=== PATIENT | male | born 1955 | race African-American/Black ===

== ENCOUNTER 2017-03-30 06:35 | Day surgery (SDC) | payer OTHER ==
[2017-03-29 09:54] VITALS: BMI 33.0
[2017-03-30] MEDS ORDERED: PROPOFOL 20 ML ONE ×2 (08:25)
[2017-03-30 09:19] VITALS: TEMP 7.5
[2017-03-30 10:14] VITALS: BP 116/78; PULSE 76
--- NOTE | 2017-04-02 15:14 | PATH ---
Surgical Pathology Report Patient Name: MARILYN MARIN [facility]. Rec. #: [id number] /Age/Gender: 1955 (Age: 61) / M Account: [id number] Location: U-ENDOSCOPY Taken: 03/30/2017 Received: 03/30/2017 Reported: 04/02/2017 Physicians: Vilma Gentile M.D. Specimen(s) Received A: BX CECAL POLYP B: BX ASCENDING COLON POLYP C: BX HEPATIC FLEXURE POLYP Clinical History Preoperative diagnosis: Screening Postoperative diagnosis: Polyps, diverticulosis Final Diagnosis A. CECAL POLYP, BIOPSY: POLYPOID COLONIC MUCOSA WITH MELANOSIS COLI AND SUPERFICIAL HYPERPLASTIC CHANGES. B. ASCENDING COLON, POLYP, BIOPSY: TUBULAR ADENOMA. C. COLON, HEPATIC FLEXURE, POLYP, BIOPSY: TUBULAR ADENOMA. Electronically Signed Adela Mojica M.D. Gross Description A. Received in formalin, labeled "biopsy cecal polyp" is a flores, irregular portion of soft tissue measuring 0.1 cm. in greatest dimension. The specimen is submitted in toto in one cassette. B. Received in formalin, labeled "biopsy ascending colon polyp" are 5 flores, irregular portions of soft tissue in from 0.1-0.3 cm. in greatest dimension. The specimens are submitted in toto in one cassette. C. Received in formalin, labeled "biopsy hepatic flexure polyp" are 2 flores, irregular portions of soft tissue averaging 0.2 cm. in greatest dimension. The specimens are submitted in toto in one cassette. 03/30/2017 saudi03/30/2017
== END 2017-03-30 10:19 | disposition home or self-care (01) ==
LOC: JASU-ENDO 06:35
PROVIDERS: ATTEND Internal Medicine Gastroenterology
PROC: 0DBL8ZX Excision of Transverse Colon, Via Natural or Artificial Opening Endoscopic, Diagnostic (ICD-10-PCS; 2017-03-30)
PROC: 0DBH8ZX Excision of Cecum, Via Natural or Artificial Opening Endoscopic, Diagnostic (ICD-10-PCS; 2017-03-30)
PROC: 0DBK8ZX Excision of Ascending Colon, Via Natural or Artificial Opening Endoscopic, Diagnostic (ICD-10-PCS; principal; 2017-03-30 09:30)
DX: Z12.11 Encounter for screening for malignant neoplasm of colon (principal); K57.30 Diverticulosis of large intestine without perforation or abscess without bleeding; K64.8 Other hemorrhoids; D12.2 Benign neoplasm of ascending colon; D12.0 Benign neoplasm of cecum; D12.3 Benign neoplasm of transverse colon
CPT/HCPCS: 88305-TC

== ENCOUNTER 2021-11-20 19:50 | Observation (INO) | payer OTHER ==
[2021-11-20 19:58] VITALS: BMI 31.0
[2021-11-20 21:09] LABS: BASO % 0.7 % (0-2.0); EOS % 2.3 % (0-4.5); HEMATOCRIT 44.2 % (35.4-49); HEMOGLOBIN 14.8 GM/dL (11.7-16.9); LYMPH % 35.4 % (8-40); MCH 28.9 pg (25.7-33.7); MCHC 33.4 g/dl (32.0-35.9); MEAN CELL VOLUME 86.6 fl (80-96); MEAN PLT VOLUME 9.1 fl (7.5-11.1); MONO % 10.2 % (3.8-10.2); NEUT % 51.4 % (42.8-82.8); PLATELET COUNT 218 10^3/uL (134-434); RBC 5.11 M/mm3 (4.00-5.60); RDW 14.9 % (11.9-15.9); WHITE BLOOD COUNT 4.7 K/mm3 (4.0-10.0)
[2021-11-20 21:31] LABS: CALCIUM 9.3 mg/dL (8.5-10.1)
[2021-11-20 21:32] LABS: ALBUMIN 3.9 g/dl (3.4-5.0); BLOOD UREA NITROGEN 19.6 mg/dL (7-18)
[2021-11-20 21:34] LABS: CREATININE 1.7 mg/dL (0.55-1.3)
[2021-11-20 21:36] LABS: BILIRUBIN,TOTAL 0.6 mg/dL (0.2-1); TOT PROT 7.7 g/dl (6.4-8.2)
[2021-11-21] MEDS ORDERED: MAG HYDROX/AL HYDROX/SIMETH 30 ML UNIT-DOSE CUP PO PRN (04:24)
[2021-11-21 08:05] LABS: ALBUMIN 3.6 g/dl (3.4-5.0); BLOOD UREA NITROGEN 16.7 mg/dL (7-18); MAGNESIUM 2.2 mg/dL (1.8-2.4)
[2021-11-21 08:08] LABS: CREATININE 1.3 mg/dL (0.55-1.3); PHOSPHOROUS 3.7 mg/dL (2.5-4.9)
[2021-11-21 08:10] LABS: BILIRUBIN,TOTAL 0.9 mg/dL (0.2-1); TOT PROT 7.5 g/dl (6.4-8.2)
[2021-11-21 08:40] VITALS: PULSE 62; RESP 18
[2021-11-21] MEDS ORDERED: PANTOPRAZOLE 40 MG TABLET PO ONE (09:46)
[2021-11-21] MEDS ORDERED: LISINOPRIL 20 MG TABLET ONE (09:46)
[2021-11-21] MEDS ORDERED: amLODIPine BESYLATE 10 MG TABLET (FP) ONE (09:46)
[2021-11-21 09:55] VITALS: BP 145/82; TEMP 98.4
[2021-11-21] MEDS ORDERED: CHLORTHALIDONE 25 MG TABLET PO SCH (10:00)
[2021-11-21] MEDS ORDERED: LISINOPRIL 20 MG TABLET PO SCH (10:00)
[2021-11-21] MEDS ORDERED: PANTOPRAZOLE 40 MG TABLET PO SCH (10:00)
[2021-11-21] MEDS ORDERED: amLODIPine BESYLATE 10 MG TABLET (FP) PO SCH (10:00)
[2021-11-21] MEDS ORDERED: RIVAROXABAN 20 MG TABLET PO SCH (18:00)
[2021-11-21] MEDS ORDERED: SENNOSIDES/DOCUSATE COMBO (SENNA PLUS) TABLET (UD) PO SCH (22:00)
== END 2021-11-21 10:25 | disposition home or self-care (01) ==
LOC: JER 19:50 → JERBED 22:23
PROVIDERS: ADMIT Internal Medicine; ATTEND Internal Medicine
DX: R07.9 Chest pain, unspecified (principal); R10.13 Epigastric pain; I48.91 Unspecified atrial fibrillation; K21.9 Gastro-esophageal reflux disease without esophagitis; E78.5 Hyperlipidemia, unspecified; I10 Essential (primary) hypertension
CPT/HCPCS: 0241U-QW; 36415; 71046-TC-FY; 80053; 83735; 84100; 84484; 85025; 85379; 93005; 93010; 99285-25; C9803-CS; G0378; U0003; U0005

== ENCOUNTER 2021-11-30 22:53 | Inpatient (IN) | payer OTHER ==
[2021-11-30 22:58] VITALS: TEMP 97.5; BMI 31.0
[2021-12-01] MEDS ORDERED: MECLIZINE HCL 25 MG TABLET (FP) PO ONE (00:10)
[2021-12-01] MEDS ORDERED: MECLIZINE HCL 25 MG TABLET (FP) ONE (00:33)
[2021-12-01 01:34] LABS: INR 2.55 (0.83-1.09); PROTHROMBIN TIME (PATIENT) 29.6 SEC (9.7-13.0)
[2021-12-01 01:36] LABS: ACTIVATED PTT 44.6 SECONDS (25.2-36.5)
[2021-12-01 01:46] LABS: BASO % 0.4 % (0-2.0); EOS % 0.3 % (0-4.5); HEMOGLOBIN 13.2 GM/dL (11.7-16.9); LYMPH % 9.9 % (8-40); MCHC 33.9 g/dl (32.0-35.9); MEAN CELL VOLUME 85.7 fl (80-96); MEAN PLT VOLUME 9.1 fl (7.5-11.1); MONO % 4.3 % (3.8-10.2); NEUT % 85.1 % (42.8-82.8); PLATELET COUNT 212 10^3/uL (134-434); RBC 4.55 M/mm3 (4.00-5.60); RDW 14.2 % (11.9-15.9); WHITE BLOOD COUNT 7.5 K/mm3 (4.0-10.0)
[2021-12-01 01:48] LABS: CALCIUM 9.9 mg/dL (8.5-10.1)
[2021-12-01 01:50] LABS: ALBUMIN 3.8 g/dl (3.4-5.0); BLOOD UREA NITROGEN 22.6 mg/dL (7-18); MAGNESIUM 2.1 mg/dL (1.8-2.4)
[2021-12-01 01:53] LABS: BILIRUBIN,TOTAL 0.2 mg/dL (0.2-1); CREATININE 1.5 mg/dL (0.55-1.3); TOT PROT 7.4 g/dl (6.4-8.2)
[2021-12-01 03:59] VITALS: BP 115/70; PULSE 87; RESP 16
== END 2021-12-01 05:46 | disposition left against medical advice (07) | DRG 149 ==
LOC: JER 22:53 → JERBED 12-01 02:32
PROVIDERS: ADMIT Internal Medicine; ATTEND Internal Medicine
DX: R42 Dizziness and giddiness (principal); I10 Essential (primary) hypertension; K21.9 Gastro-esophageal reflux disease without esophagitis
CPT/HCPCS: 36415; 70450-TC; 71046-TC-FY; 80053; 83735; 84484; 85025; 85610; 85730; 93005; 93010; 99285-25; C9803-CS; U0003; U0005

== ENCOUNTER 2022-04-20 16:39 | Emergency (ER) | payer OTHER ==
[2022-04-20 17:48] VITALS: BP 143/82; PULSE 86; RESP 18; TEMP 98.3; BMI 33.4
[2022-04-20] MEDS ORDERED: ACETAMINOPHEN 1000 MG/100 ML BAG IVPB ONE (18:39)
[2022-04-20] MEDS ORDERED: FAMOTIDINE 20 MG/50 ML IVPB 20 MG in PREMIX 50 IVPB ONE (18:39)
[2022-04-20] MEDS ORDERED: ACETAMINOPHEN INJECTION 100 ML IVPB ONE (19:37)
[2022-04-20] MEDS ORDERED: FAMOTIDINE 20 MG/50 ML IVPB 20 MG/50 ML MG IVPB ONE (19:37)
[2022-04-20 20:06] LABS: BASO % 0.5 % (0-2.0); EOS % 4.1 % (0-4.5); HEMATOCRIT 40.8 % (35.4-49); HEMOGLOBIN 13.5 GM/dL (11.7-16.9); LYMPH % 51.6 % (8-40); MCH 29.1 pg (25.7-33.7); MCHC 33.2 g/dl (32.0-35.9); MEAN CELL VOLUME 87.5 fl (80-96); MEAN PLT VOLUME 9.9 fl (7.5-11.1); MONO % 8.9 % (3.8-10.2); NEUT % 34.9 % (42.8-82.8); PLATELET COUNT 204 10^3/uL (134-434); RBC 4.66 M/mm3 (4.00-5.60); RDW 14.3 % (11.9-15.9); WHITE BLOOD COUNT 3.8 K/mm3 (4.0-10.0)
[2022-04-20 20:25] LABS: ALBUMIN 3.6 g/dl (3.4-5.0); BLOOD UREA NITROGEN 19.2 mg/dL (7-18); CALCIUM 9.1 mg/dL (8.5-10.1)
[2022-04-20 20:28] LABS: CREATININE 1.2 mg/dL (0.55-1.3)
[2022-04-20 20:30] LABS: BILIRUBIN,TOTAL 0.3 mg/dL (0.2-1); TOT PROT 7.7 g/dl (6.4-8.2)
== END 2022-04-20 23:52 | disposition home or self-care (01) ==
LOC: JER 16:39
PROC: 3E0333Z Introduction of Anti-inflammatory into Peripheral Vein, Percutaneous Approach (ICD-10-PCS; principal; 2022-04-20)
PROC: 3E033GC Introduction of Other Therapeutic Substance into Peripheral Vein, Percutaneous Approach (ICD-10-PCS; 2022-04-20)
DX: R10.84 Generalized abdominal pain (principal)
CPT/HCPCS: 36415; 74177-TC; 80053; 83605; 83690; 84484; 85025; 93005; 93010; 99285-25

== ENCOUNTER 2023-06-12 20:47 | Observation (INO) | payer OTHER ==
[2023-06-12 20:54] VITALS: BMI 31.3
[2023-06-12 22:17] LABS: BASO % 0.6 % (0-2.0); EOS % 2.7 % (0-4.5); HEMATOCRIT 43.5 % (35.4-49); HEMOGLOBIN 14.4 GM/dL (11.7-16.9); LYMPH % 32.3 % (8-40); MCH 28.8 pg (25.7-33.7); MCHC 33.1 g/dl (32.0-35.9); MEAN PLT VOLUME 8.8 fl (7.5-11.1); MONO % 9.4 % (3.8-10.2); PLATELET COUNT 209 10^3/uL (134-434); RDW 14.4 % (11.9-15.9); WHITE BLOOD COUNT 6.1 K/mm3 (4.0-10.0)
[2023-06-12 22:24] LABS: INR 1.53 (0.83-1.09); PROTHROMBIN TIME (PATIENT) 17.7 SEC (9.7-13.0)
[2023-06-12 22:26] LABS: ACTIVATED PTT 38.6 SECONDS (25.2-36.5)
[2023-06-12 22:38] LABS: POTASSIUM 3.8 mmol/L (3.5-5.1)
[2023-06-12 22:40] LABS: CALCIUM 9.5 mg/dL (8.5-10.1)
[2023-06-12 22:42] LABS: ALBUMIN 3.7 g/dl (3.4-5.0); BLOOD UREA NITROGEN 18.3 mg/dL (7-18)
[2023-06-12 22:44] LABS: CREATININE 1.8 mg/dL (0.55-1.3)
[2023-06-12 22:45] LABS: BILIRUBIN,TOTAL 0.4 mg/dL (0.2-1); TOT PROT 7.5 g/dl (6.4-8.2)
[2023-06-12] MEDS ORDERED: ASPIRIN 81 MG CHEWABLE TABLETS ONE (23:35)
[2023-06-12] MEDS: ASPIRIN 81 MG CHEWABLE TABLETS PO ONE (23:40)
[2023-06-12] MEDS: SODIUM CHLORIDE 0.9% 500 ML INFUS.BAG IV ONE (23:43)
[2023-06-13 02:25] VITALS: RESP 18
[2023-06-13 07:41] LABS: BASO % 0.4 % (0-2.0); EOS % 3.6 % (0-4.5); HEMATOCRIT 40.5 % (35.4-49); HEMOGLOBIN 13.5 GM/dL (11.7-16.9); LYMPH % 42.3 % (8-40); MCH 28.7 pg (25.7-33.7); MCHC 33.2 g/dl (32.0-35.9); MEAN CELL VOLUME 86.3 fl (80-96); MEAN PLT VOLUME 9.7 fl (7.5-11.1); MONO % 8.2 % (3.8-10.2); NEUT % 45.5 % (42.8-82.8); PLATELET COUNT 185 10^3/uL (134-434); RBC 4.69 M/mm3 (4.00-5.60); RDW 14.2 % (11.9-15.9); WHITE BLOOD COUNT 4.6 K/mm3 (4.0-10.0)
[2023-06-13 08:55] LABS: BLOOD UREA NITROGEN 15.5 mg/dL (7-18); CALCIUM 8.7 mg/dL (8.5-10.1); CREATININE 1.4 mg/dL (0.55-1.3); POTASSIUM 3.7 mmol/L (3.5-5.1)
[2023-06-13] MEDS: NEBIVOLOL 5 MG TABLET (FP) PO SCH (09:46)
[2023-06-13] MEDS: ASPIRIN 81 MG CHEWABLE TABLETS PO SCH (09:46)
[2023-06-13] MEDS: amLODIPine BESYLATE 10 MG TABLET (FP) PO SCH (09:46)
[2023-06-13] MEDS: RIVAROXABAN 20 MG TABLET PO SCH (17:45)
[2023-06-13 17:47] VITALS: BP 132/61; PULSE 78; TEMP 98.2
[2023-06-13] MEDS ORDERED: ATORVASTATIN CA 20 MG TABLET (FP) PO SCH (22:00)
== END 2023-06-13 18:17 | disposition home or self-care (01) ==
LOC: JER 20:47 → JERBED 23:33 → J4S 06-13 01:43
PROVIDERS: ADMIT Internal Medicine; ATTEND Internal Medicine
PROC: 3E0337Z Introduction of Electrolytic and Water Balance Substance into Peripheral Vein, Percutaneous Approach (ICD-10-PCS; principal; 2023-06-12)
DX: N17.9 Acute kidney failure, unspecified (principal); I48.91 Unspecified atrial fibrillation; K21.9 Gastro-esophageal reflux disease without esophagitis; E78.5 Hyperlipidemia, unspecified; R07.9 Chest pain, unspecified; I10 Essential (primary) hypertension; Z79.01 Long term (current) use of anticoagulants
CPT/HCPCS: 36415; 71045-TC-FY; 80048; 80053; 80061; 83690; 84443; 84484; 85025; 85610; 85730; 93005; 93010; 96360; 99285-25; G0378